=== PATIENT | male | born 1940 | race African-American/Black ===

== ENCOUNTER 2024-03-04 19:35 | Inpatient (IN) | payer MEDICARE, OTHER, SELFPAY ==
[2024-03-04] VITALS (13 sets, daily range): BP systolic 109–142; BP diastolic 50–74; BMI 27.6
[2024-03-04 11:36] LABS: Glucose - Point of Care 153 mg/dl (70-99)
[2024-03-04] MEDS: NSS 500 IV (11:36)
[2024-03-04] MEDS: BACTROBAN NASAL 1 GRAM NASAL (11:36)
[2024-03-04] MEDS: PERIDEX 0.12% ORAL RINSE 15 ML PO (11:36)
[2024-03-04 11:40] LABS: Hematocrit 32.1 % (39.0-52.0); Hemoglobin 10.3 g/dL (13.0-18.0); Mean Corp Hgb Conc. 32.1 g/dL (33.0-37.0); Mean Corpuscular Hgb 28.7 pg (27.0-31.0); Mean Corpuscular Volume 89.4 fL (80.0-94.0); Red Blood Cell Count 3.59 10^6/uL (4.70-6.10); Red Cell Dist. Width 16.8 % (11.5-14.5); White Blood Cell Count 7.6 10^3/uL (4.8-10.8)
[2024-03-04 11:49] LABS: INR 1.23; PT 15.3 Sec (11.4-14.6)
[2024-03-04 11:51] LABS: APTT 28.6 Sec (23.4-35.0)
[2024-03-04 11:56] LABS: Blood Urea Nitrogen 25 mg/dl (9-20); Calcium 9.4 mg/dl (8.4-10.2); Carbon Dioxide 32 mmol/L (22-30); Chloride 93 mmol/L (98-107); Estimated Creatinine Clearance 12 ml/min; Glucose 141 mg/dl (70-99); Potassium 4.8 mmol/L (3.5-5.1); Sodium 136 mmol/L (135-145); eGFR 10.96
[2024-03-04 12:01] LABS: Mean Platelet Volume 10.9 fL (7.4-10.4); Platelet Count 111 10^3/uL (130-400)
--- NOTE | 2024-03-04 15:07 | W.SUR.PREOP ---
Pre-Operative Surgical Note
-
I have examined this patient prior to the performance of the scheduled procedure.
The patient's condition is unchanged from the time of the current History and
Physical and the patient is able to undergo the scheduled procedure.
[2024-03-04 16:41] LABS: Glucose - Point of Care 139 mg/dl (70-99)
--- NOTE | 2024-03-04 17:08 | OR.RPT ---
Operative Report
Operative Report
Date of Operation: 03/04/2024
Pre Op Diagnosis: End-stage renal disease requiring hemodialysis
Post Op Diagnosis: End-stage renal disease requiring hemodialysis
Procedure: Creation of right upper extremity brachiocephalic arteriovenous fistula
Surgeon: Praveen Dinh III, MD
Clerk Manager: Pk Carlos MD PhD, PGY1
Anesthesia: General
Complications: None
Estimated Blood Loss: 25 cc
History and Indications for Procedure: 83-year-old male with end-stage renal disease requiring hemodialysis. He has a left chest wall AICD/pacemaker and is right-handed. We brought him to the operating room for creation of hemodialysis access.
Procedure in Detail: Maury Meyers was correctly identified and brought to the operating room. He was placed supine on the operating table with the right arm abducted 90 degrees on a side table. After adequate induction of anesthesia I performed
intraoperative ultrasound on the veins of the right arm. I identified and measured the cephalic vein from the antecubital fossa to the shoulder. The vein was of adequate quality and diameter for AV fistula creation. The right brachial artery was
also identified in the upper arm and proximal forearm. An appropriate skin incision was marked approximately 1 fingerbreadth below the skin crease at the antecubital fossa. The right hand and arm were circumferentially prepped and draped in usual
sterile fashion. Preoperative antibiotics were administered. A timeout procedure was performed with the nursing and anesthesia staff confirming the patient's identity as well as the nature and laterality of the procedure.
A transverse skin incision was made in the proximal forearm through the previously placed skin anuj. A combination of electrocautery and sharp dissection was used to expose the cephalic vein. Branches were ligated and divided between silk ties and
metal clips. The brachial artery was exposed using sharp dissection. Proximal and distal control was obtained on the brachial artery with vessel loops. The distal end of the cephalic vein was ligated with a silk tie and then transected with
scissors. The vein was flushed with heparinized saline solution. The vein flushed easily with no resistance. I passed both the 3 mm and 3.5 mm coronary dilators easily through the exposed segment of cephalic vein. A bulldog clamp was placed on
the vein. The brachial artery vessel loops were secured. An arteriotomy was made with an 11 blade and extended slightly proximally and distally with Aguirre scissors. The proximal and distal brachial artery were flushed with heparinized saline
solution. An end-to-side anastomosis was created using a running 7-0 Prolene suture. Prior to the completion of the anastomosis the brachial artery was allowed to temporarily forward bleed and backbleed. The area under the anastomosis was flushed
with heparinized saline solution to remove any potential thrombus or debris. The anastomosis was completed. The bulldog was removed from the vein. The proximal vessel loop was released first. After several heartbeats the distal vessel loop was
released. There was an easily palpable thrill in the cephalic vein along its course in the upper arm. The anastomotic suture line was closely inspected and hemostasis was achieved. Hemostasis was achieved in the wound bed. The wound was
irrigated with saline solution. Local anesthesia was infiltrated into the skin and subcutaneous tissue around the wound. The wound was closed in layers. Skin glue was applied.
At the conclusion of the case the patient had an easily palpable thrill in the cephalic vein in the upper arm. The patient had a robust radial Doppler signal at the wrist, unchanged from preop.
The patient tolerated the procedure well and was taken to the recovery room in good condition.
Signed:
Praveen Dinh III, MD
[facility]
[phone] ([id number])
[2024-03-04 18:14] LABS: Glucose - Point of Care 181 mg/dl (70-99)
--- NOTE | 2024-03-04 18:31 | PTCARENOTE ---
Addendum entered by Alma Dean RN 03/04/24 18:32:
Right upper extremity incision remains unchanged from initial assessment. Positive bruit/thrill
Original Note:
Report given to 2S nurse. Patient transported to 2S with 2RN's.
--- NOTE | 2024-03-04 18:51 | W.IMMPOSTOP ---
Surgical Immed Post Op Note
-
Primary Surgeon: Dr. Praveen Dinh III, MD
Assisting Surgeon: Dr. Pk Carlos MD, PhD (PGY-1)
Pre-op Diagnosis: End stage renal disease on hemodialysis
Post-op Diagnosis: End stage renal disease on hemodialysis
Procedure Performed: Right upper extremity brachiocephalic AV fistula
Anesthesia Type: General
Specimen / Cultures: None
Estimated Blood Loss: 25cc
Complications: None
Operative Findings: The patient was brought to the OR and placed in the supine position. After induction of anesthesia, ultrasound guidance was used to perform upper extremity vein mapping. This demonstrated a reasonably sized cephalic vein. The
patient was prepped and draped in usual sterile fashion. Incision was made and a combination of electrocautery and sharp dissection was used to expose the cephalic vein. A vessel loop was passed around the vein proximally and a silk tie was passed
around the vein distally. We then dissected to expose the brachial artery. Red vessel loops were passed around the brachial artery for proximal and distal control. The proximal vein was ligated and the vein was transected. Heparinized saline was
injected into the proximal vein. The proximal vein was then dilated to improve its caliber. We then made an arteriotomy in the brachial artery and extended it with almaguer scissors. Heparinized saline was injected into the proximal and distal aspects
of the brachial artery. We then brought the transected cephalic vein over to the artery. A running 7-0 prolene suture was used to complete the end to side anastomosis between the cephalic vein and brachial artery. At the completion of the
anastomosis, there was a palpable thrill in the vein. Soft tissues were closed with suture layers and skin glue on the surface. At the completion of the case, the patient had a palpable radial pulse. The patient was transferred to the PACU in stable
condition.
--- NOTE | 2024-03-04 19:45 | PTCARENOTE ---
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 AAOx3, very pleasant, oriented to room and explained plan of care. at bedside and also oriented to room. VSS, surgical site intact. assessment ongoing.
[2024-03-04] MEDS: LIPITOR 80 MG PO (20:58)
[2024-03-04] MEDS: ADVAIR HFA 230/21 MCG INHALER 2 PUFF INH (20:59)
[2024-03-04 21:22] LABS: Glucose - Point of Care 292 mg/dl (70-99)
[2024-03-05] VITALS (7 sets, daily range): BP systolic 83–120; BP diastolic 44–56; BMI 27.0
[2024-03-05] MEDS: TYLENOL 650 MG PO ×2 (02:46→21:07)
--- NOTE | 2024-03-05 06:37 | W.PN.VS ---
Addendum entered and electronically signed by Chapincito Isaacs MD 03/05/24 13:06:
Seen and examined. Initially I was informed about plan for hemodialysis elsewhere. However noted that patient was still here. Therefore went to go see him. He completed dialysis here. No issues. He is without significant complaints. Right
upper extremity incision clean dry and intact. Thrill/pulsatility in fistula. Patent on exam. Hand is pink and warm with palpable radial pulse distally. Plan/okay for discharge. Follow-up in the office to schedule.
Original Note:
Today's Communication / Plan
-
Discussed with Dr Isaacs
Assessment/Plan
-
POD 1 AVF creation
Plan:
-DC this am
-Pt will go to his outpt HD center from here for HD at 10:30a
-Follow up as scheduled
Subjective Data
-
Date of Service: March 05, 2024
Pt seen at bedside this am. Pt offers no complaints at this time. No events overnight.
Objective Data
-
Vital Signs
Temp Pulse Resp BP Pulse Ox
97.7 F 61 18 117/50 100
03/05/24 02:54 03/05/24 02:54 03/05/24 02:54 03/05/24 02:54 03/05/24 02:54
Intake and Output
03/03/24 03/04/24 03/05/24
06:59 06:59 06:59
Intake Total 360 / 360
Balance 360 / 360
Intake:
Oral fluids 360 / 360
IV fluids (Total) 0 / 0
ns 0 / 0
Lab Results
03/04/24 10:49
03/04/24 10:49
Calcium 9.4 mg/dl (8.4-10.2) 03/04/24 10:49
Physical Exam
-
AAOx3
No tachypnea
No tachycardia
abd soft
RUE fistula site c/d/i, scant swelling, +thrill, palp radial pulse
--- NOTE | 2024-03-05 06:42 | W.DS.TRANS ---
Addendum entered and electronically signed by GINA Ba 03/05/24 06:48:
Added oxycodone for pain management
Original Note:
DC Summary - [place]
-
Discharge Instructions:
Sleep Apnea Risk Intermediate
Discharge Diagnosis/Procedures Right upper extremity AV fistula creation
Diet As tolerated
Activity No strenuous activity
Driving Restrictions No driving for 1 week
Bathing Restrictions OK to Shower
Instructions:
Stand-Alone Forms: DC Instr - Vascular OR
Changes to Home Medications: No
Discharge Medications:
DC Medications w/original date entered in [employer]
albuterol sulfate 90 mcg/actuation aerosol inhaler 2 puff inhalation QID PRN Shortness of Breath 09/01/22
fluticasone 250 mcg-salmeterol 50 mcg/dose blistr powdr for inhalation (Advair Diskus) 1 inh inhalation R BID 09/01/22
atorvastatin 80 mg tablet 80 mg PO QPM #30 tabs 09/16/22
nitroglycerin 0.4 mg sublingual tablet 0.4 mg sublingual [id number] PRN chest pain #20 tabs 09/16/22
allopurinol 100 mg tablet 200 mg PO DAILY 12/14/23
amiodarone 200 mg tablet 200 mg PO DAILY 12/14/23
aspirin 81 mg capsule 81 mg PO DAILY 12/14/23
glipizide 5 mg tablet, extended release 24 hr 5 mg PO QPM 12/14/23
levalbuterol HCl 1.25 mg/3 mL solution for nebulization 1.25 mg inhalation R TID PRN lungs/breathing issue 12/14/23
mecobalamin (vitamin B12) 1,000 mcg chewable tablet (B12 Active) 1,000 mcg PO DAILY 12/14/23
metoprolol succinate 50 mg tablet,extended release 24 hr 50 mg PO BID 12/14/23
Home Medication Changes
Pending Results: No
--- NOTE | 2024-03-05 06:48 | W.[place]-PDMP ---
[place]-PD[place]
-
Checked the [place]- Prescription Drug Monitoring Program website, no red flags identified; safe to proceed with prescription.
[2024-03-05 06:58] LABS: Glucose - Point of Care 197 mg/dl (70-99)
[2024-03-05] MEDS: ADVAIR HFA 230/21 MCG INHALER 2 PUFF INH ×2 (08:09→20:33)
--- NOTE | 2024-03-05 10:13 | CM ---
feed mill manager reviewed patient's chart and met with patient and patient lives with his spouse in a 2 story home with 5 steps to enter patient is independent with adl's and ambulation. Patient with ESRD and receives HD at [facility] in [place].
feed mill manager reached out to [facility] and the are aware that patient has received HD today. Patient provides his own transport to HD.
Pharmacy [facility]
Plan; Home today, spouse to transport.
[facility]
[phone]
[2024-03-05] MEDS: MANNITOL 25% 12.5 GRAMS IV (10:30)
[2024-03-05] MEDS: FLEXBUMIN 25% FOR HEMODIALYSIS 12.5 GRAMS IV (10:33)
[2024-03-05] MEDS: CYANOCOBALAMIN 1000 MCG IM (12:52)
[2024-03-05] MEDS: LOW STRENGTH ASPIRIN 81 MG PO (12:52)
[2024-03-05] MEDS: GLUCOTROL XL (EXTENDED RELEASE) 5 MG PO (12:54)
[2024-03-05] MEDS: ZYLOPRIM 200 MG PO (12:54)
[2024-03-05] MEDS: HEPARIN SC (12:55)
[2024-03-05] MEDS: PACERONE 200 MG PO (13:06)
[2024-03-05] MEDS: TOPROL XL 50 MG PO (13:06)
--- NOTE | 2024-03-05 13:38 | W.CON.NEPH ---
Consultation
-
Date/Time Consultation Requested: 03/04/2024
Requesting Provider: Praveen Dinh
Performing Provider: Hyun Willis
Reason for Consultation: ESRD on HD
Medical History
-
Chief Complaint: ESRD on HD
History of Present Illness:
Mr. Meyers is an 83 YOM with PMH of ESRD on HD (TT) who follows with an outside nephrology group who presents to the hospital after fistula creation in need of dialysis today per his usual schedule. He is maintained on ASA and statin for stroke. He
has a history of HTN, on metoprolol. He has no complaints and feels well today
Past Medical History
ESRD on HD
Three-vessel coronary artery disease.
History of CVA.
History of hypertension.
Diabetes, now off medications.
Asthma.
Proctectomy and appendectomy.
History of gout.
Past Medical History: Other
Social History
Tobacco: Former Smoker
Alcohol: None
Drug: None
Living: With Family
Family History
NoCKD
Family History: Not Pertinent
Allergies / Home Medications
Allergy/AdvReac Type Severity Reaction Status Date / Time
Aminoglycosides Allergy Vertigo Verified 03/04/24 11:05
erythromycin base Allergy VERTIGO Verified 03/04/24 11:05
latex Allergy Rash Verified 03/04/24 11:05
losartan Allergy Unknown Verified 03/04/24 11:05
niacin Allergy HIVES/WELTS Verified 03/04/24 11:05
�Medication �Instructions �Recorded �Confirmed �Type
albuterol sulfate 90 mcg/actuation 2 puff inhalation QID PRN 09/01/22 03/04/24 History
aerosol inhaler Shortness of Breath
fluticasone 250 mcg-salmeterol 50 1 inh inhalation R BID 09/01/22 03/04/24 History
mcg/dose blistr powdr for
inhalation (Advair Diskus)
atorvastatin 80 mg tablet 80 mg PO QPM #30 tabs 09/16/22 03/04/24 Rx
nitroglycerin 0.4 mg sublingual 0.4 mg sublingual [id number] PRN 09/16/22 03/04/24 Rx
tablet chest pain #20 tabs
allopurinol 100 mg tablet 200 mg PO DAILY 12/14/23 03/04/24 History
amiodarone 200 mg tablet 200 mg PO DAILY 12/14/23 03/04/24 History
aspirin 81 mg capsule 81 mg PO DAILY 12/14/23 03/04/24 History
glipizide 5 mg tablet, extended 5 mg PO QPM 12/14/23 03/04/24 History
release 24 hr
levalbuterol HCl 1.25 mg/3 mL 1.25 mg inhalation R TID PRN 12/14/23 03/04/24 History
solution for nebulization lungs/breathing issue
mecobalamin (vitamin B12) 1,000 1,000 mcg PO DAILY 12/14/23 03/04/24 History
mcg chewable tablet (B12 Active)
metoprolol succinate 50 mg 50 mg PO BID 12/14/23 03/04/24 History
tablet,extended release 24 hr
oxycodone 5 mg tablet 5 mg PO Q4HPRN PRN moderate pain 03/05/24 Rx
#5 tabs
Review of Systems
-
History Source: Patient
All other systems: Negative unless noted
Physical Exam
Vital Signs
Vital Signs
Temp Pulse Resp BP Pulse Ox
97.6 F 61 16 116/56 97
03/05/24 07:31 03/05/24 13:06 03/05/24 08:36 03/05/24 13:06 03/05/24 08:36
Lab Results
WBC 7.6 10^3/uL (4.8-10.8) 03/04/24 10:49
RBC 3.59 10^6/uL (4.70-6.10) L 03/04/24 10:49
Hgb 10.3 g/dL (13.0-18.0) L 03/04/24 10:49
Hct 32.1 % (39.0-52.0) L 03/04/24 10:49
Plt Count 111 10^3/uL (130-400) L 03/04/24 10:49
Sodium 136 mmol/L (135-145) 03/04/24 10:49
Potassium 4.8 mmol/L (3.5-5.1) 03/04/24 10:49
Chloride 93 mmol/L (98-107) L 03/04/24 10:49
Carbon Dioxide 32 mmol/L (22-30) H 03/04/24 10:49
BUN 25 mg/dl (9-20) H 03/04/24 10:49
Creatinine 5.0 mg/dL (0.7-1.3) H* 03/04/24 10:49
eGFR 10.96 03/04/24 10:49
Glucose 141 mg/dl (70-99) H 03/04/24 10:49
Calcium 9.4 mg/dl (8.4-10.2) 03/04/24 10:49
Physical Exam
General: AOx3, No Distress and Nontoxic
HEENT: PERRL, EOMI, Anicteric, Conjunctivae Clear, Ear/Nose Intact, Hearing Normal, Oropharynx Clear/Moist, Dentition Intact, Facial Symmetry, Neck Supple, Trachea Midline and No JVD
Respiratory: Clear
Cardiac: S1/S2, Regular Rate/Rhythm and No Edema
Breast: N/A
Abdomen: Soft, Nontender and Nondistended
Rectal: Deferred by Provider
Genito-urinary: No Costovertebral Tender
Musculoskeletal: No Clubbing, No Cyanosis and No Edema
Skin: No Rash, Warm, Dry, No Cyanosis, Normal Turgor and No Bruising
Neuro: Nonfocal/Grossly Intact
Hematologic/Lymphatic: No Cervical Lymphadenopathy
Psych: Mood/afflect pleasant, Insight/judgement good and Appropriate
Vascular Access: AVF and CVC
Data Reviewed
-
Radiology: Image Personally Visualized and interpreted (some pulmnary edema noted)
Labs: Labs Reviewed by me, Discussed with Physician, Discussed with Nurse and Discussed with Patient
Old Records: Reviewed
Assessment/Plan
-
Assessment:
ESRD on HD
AVF placement
HTN
Plan:
- dialysis today per usual scehdule
--- NOTE | 2024-03-05 13:52 | W.PN.NEPH.HD ---
Assessment
-
- 500cc removed
- via CVC
Progress Note - Hemodialysis
-
Date of Service: March 05, 2024
Duration: 30 minutes and 3 hours
Potassium Bath: 3
Calcium Bath: 2.5
Opti-Dialyzer: 160
Ultrafiltration: Other
Blood Flow: 400
Dialysate Flow: 600
[2024-03-05 14:51] LABS: Glucose - Point of Care 258 mg/dl (70-99)
--- NOTE | 2024-03-05 15:54 | PTCARENOTE ---
Pt was in BR attempting to have a BM and his heart rate dropped to 32 multiple times, pt however was asymptomatic. While ambulating pt back to bed he c/o dizziness. B/P 83/48. Placed pt in trendelenburg and notified of all including low HR since
pt does have a pacer. B/P repeated shortly after and B/P now 110/56 and states that he feels better. D/C placed on hold
[2024-03-05] MEDS: HEPARIN 5000 UNITS SC ×3 (16:53→23:31)
[2024-03-05] MEDS: LIPITOR 80 MG PO (16:54)
[2024-03-05 17:01] LABS: Glucose - Point of Care 255 mg/dl (70-99)
[2024-03-05] MEDS: MIRALAX 17 GRAMS PO (21:07)
[2024-03-05 21:13] LABS: Glucose - Point of Care 180 mg/dl (70-99)
[2024-03-06 03:00] VITALS: BP 106/47
[2024-03-06 06:00] VITALS: BMI 27.0
[2024-03-06 07:05] VITALS: BP 94/74
[2024-03-06] MEDS: ADVAIR HFA 230/21 MCG INHALER 2 PUFF INH (07:11)
[2024-03-06 07:54] LABS: Glucose - Point of Care 125 mg/dl (70-99)
[2024-03-06] MEDS: ZYLOPRIM 200 MG PO (08:12)
[2024-03-06] MEDS: PACERONE 200 MG PO (08:12)
[2024-03-06] MEDS: MIRALAX 17 GRAMS PO (08:12)
[2024-03-06] MEDS: HEPARIN 5000 UNITS SC (08:13)
[2024-03-06] MEDS: TYLENOL 650 MG PO (08:13)
[2024-03-06] MEDS: LOW STRENGTH ASPIRIN 81 MG PO (08:13)
[2024-03-06] MEDS: GLUCOTROL XL (EXTENDED RELEASE) PO (08:26)
[2024-03-06] MEDS: TOPROL XL PO (08:27)
[2024-03-06 11:10] VITALS: BP 108/52
--- NOTE | 2024-03-06 11:33 | W.PN.UPDATE ---
Update Note
Progress Note Update
Seen and evaluated this morning. We kept him overnight because after dialysis he had a little bit of orthostasis when he got up to the bathroom with slightly decreased blood pressure and lightheadedness. Resolved when he was back in bed. There
was a question of bradycardia with heart rate in the 30s. However he is paced. This bradycardia was noted on monitoring. In review of monitoring by the nursing staff they feel that this was likely an error due to the leads or an adequate
transmission. Regardless no further hypotension or bradycardia noted. Patient has been out of bed since and denies any lightheadedness. He is without complaints this morning. On exam his right upper extremity incision is clean dry and intact.
Arm is soft. Thrill in the fistula is noted. Plan/ okay for discharge today. I did discuss with his shot packer over the phone yesterday his hypotension and the potential bradycardia. But then when we investigated did appear to be related to
monitoring error.
[2024-03-06] MEDS: CYANOCOBALAMIN IM (12:35)
== END 2024-03-06 13:11 | disposition home or self-care (01) | DRG 675 ==
LOC: 2 SOUTH 19:35
PROVIDERS: ADMITTING PHYSICIAN Surgery Vascular Surgery; FAMILY PHYSICIAN Nurse Practitioner Family; OTHER PHYSICIAN Student in an Organized Health Care Education/Training Program
PROC: 03170ZD Bypass Right Brachial Artery to Upper Arm Vein, Open Approach (ICD-10-PCS; 2024-03-04)
DX: N18.6 End stage renal disease (principal)
CPT/HCPCS: 36821; 71045; 76937; 80048; 82962; 85027; 85610; 85730; 87070; 93005; 94640; G0257; P9047

== ENCOUNTER 2024-05-20 06:23 | Day surgery (SDC) | payer MEDICARE, OTHER, SELFPAY ==
[2024-05-20] VITALS (8 sets, daily range): BP systolic 97–120; BP diastolic 48–80; BMI 29.2
[2024-05-20] MEDS: NSS 500 IV (07:45)
[2024-05-20 08:06] LABS: Glucose - Point of Care 141 mg/dl (70-99)
[2024-05-20 08:18] LABS: INR 1.17; PT 14.7 Sec (11.4-14.6)
[2024-05-20 08:19] LABS: APTT 31.8 Sec (23.4-35.0)
[2024-05-20 08:24] LABS: Hemoglobin 10.9 g/dL (13.0-18.0); Mean Corpuscular Hgb 29.2 pg (27.0-31.0); Mean Corpuscular Volume 88.5 fL (80.0-94.0); Mean Platelet Volume 11.5 fL (7.4-10.4); Platelet Count 125 10^3/uL (130-400); Red Blood Cell Count 3.73 10^6/uL (4.70-6.10); Red Cell Dist. Width 16.4 % (11.5-14.5)
[2024-05-20 08:54] LABS: Blood Urea Nitrogen 13 mg/dl (9-20); Calcium 9.6 mg/dl (8.4-10.2); Carbon Dioxide 36 mmol/L (22-30); Chloride 92 mmol/L (98-107); Estimated Creatinine Clearance 13 ml/min; Glucose 129 mg/dl (70-99); Potassium 3.8 mmol/L (3.5-5.1); Sodium 138 mmol/L (135-145); eGFR 14.33
--- NOTE | 2024-05-20 09:54 | W.SUR.POST ---
Surgical Immediate Post Op
Note
Pre Op Diagnosis: ESRD
Post Op Diagnosis: ESRD
Procedure Performed: Right Upper Extremity fistulagram, balloon angioplasty to outflow vein stenosis
Primary Surgeon: Praveen Dinh III, MD
Secondary Surgeons: N/A
Anesthesia: MAC
Estimated Blood Loss: 2ml
Fluids: See anesthesia flowsheet
Drains/Shunts: N/A
Specimens/Cultures: N/A
Doppler/Duplex/Angio (Y/N): Y
Complications: None
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
[2024-05-20 11:00] LABS: Glucose - Point of Care 94 mg/dl (70-99)
--- NOTE | 2024-05-20 14:38 | OR.RPT ---
Operative Report
Operative Report
Date of Operation: 05/20/2024
Pre Op Diagnosis: Poorly maturing right upper arm AV fistula
Post Op Diagnosis: Poorly maturing right upper arm AV fistula
Procedure:
1.) Balloon angioplasty of right upper arm arteriovenous fistula (6 mm x 20 mm cutting balloon: 6 mm x 100 mm angioplasty balloon)
2.) Diagnostic right upper arm fistulogram
3.) Central venogram
4.) Ultrasound-guided percutaneous access to the right upper arm arteriovenous fistula
Surgeon: Praveen Dinh III, MD
Anesthesia: Sedation/local
Complications: None
Fluoroscopy:
6.4 minutes
13 mGy
3.04 DAP
History and Indications for Procedure: 83-year-old male with poorly maturing right upper arm arteriovenous fistula. Preoperative duplex demonstrated a stenosis in the outflow vein
Procedure in Detail: Maury Meyers was correctly identified and placed supine on the operating table. After adequate induction of anesthesia the right arm was positioned, prepped and draped in the usual sterile fashion. Preoperative antibiotics
were administered. A timeout procedure was performed with the nursing and anesthesia staff confirming the patient�s identity as well as the nature and laterality of the procedure.
Intraoperative ultrasound was performed on the AV access. This was a brachiocephalic arteriovenous fistula. Ultrasound demonstrated a patent fistula with an area of clear stenosis in the proximal outflow vein.
I identified a puncture site along the proximal vein adjacent to the arteriovenous anastomosis and infiltrated local anesthesia at this site. Under ultrasound guidance I accessed the fistula with a micropuncture needle facing towards the venous
outflow and placed the micropuncture sheath. I performed a fistulogram which demonstrated the following:
Fistulogram:
Arterial anastomosis: Widely patent with no stenosis
Fistula/Graft: Proximal vein segment adjacent to the arteriovenous anastomosis was patent. Just distal to this there was a focal high-grade stenosis in the proximal outflow vein. The remainder of the fistula in the upper arm was patent with no
additional stenosis identified
Central venogram: Patent central veins with some stenosis around the dialysis catheter at the level of the right brachiocephalic vein.
Endovascular intervention:
Systemic heparin was administered. A short 6 Fr sheath was placed. Under roadmap guidance a V18 wire was used to cross the stenosis. I then brought a 6 x 20 mm cutting angioplasty balloon into position under roadmap guidance and centered this across
the stenosis. This was inflated to nominal pressure and held in place for 1 minute. Subsequent images demonstrated an improved result. I then treated the entire length of the cephalic vein in the upper arm from the shoulder back to the sheath tip
with a 6 mm x 100 mm angioplasty balloon. 3 separate inflations were performed
Completion fistulogram demonstrated an excellent technical result. The right upper arm brachiocephalic fistula was widely patent with good flow and no residual stenosis identified.
At the conclusion of the procedure a Monocryl suture was placed around the sheath puncture site. The sheath was removed and the suture secured. Hemostasis was achieved. A sterile dressing was applied.
The patient tolerated the procedure well and was taken to the PACU in stable condition
Signed:
Praveen Dinh III, MD
[facility]
[phone] ([id number])
== END 2024-05-20 11:21 | disposition home or self-care (01) ==
LOC: CATH 06:23
PROVIDERS: ATTENDING PHYSICIAN Surgery Vascular Surgery; FAMILY PHYSICIAN Nurse Practitioner Family; OTHER PHYSICIAN Internal Medicine Interventional Cardiology; OTHER PHYSICIAN Internal Medicine Nephrology
DX: T82.858A Stenosis of other vascular prosthetic devices, implants and grafts, initial encounter (principal); Y83.9 Surgical procedure, unspecified as the cause of abnormal reaction of the patient, or of later complication, without mention of misadventure at the time of the procedure; I13.2 Hypertensive heart and chronic kidney disease with heart failure and with stage 5 chronic kidney disease, or end stage renal disease; N18.6 End stage renal disease; Z99.2 Dependence on renal dialysis; E11.22 Type 2 diabetes mellitus with diabetic chronic kidney disease; I50.9 Heart failure, unspecified; I25.10 Atherosclerotic heart disease of native coronary artery without angina pectoris; Z87.891 Personal history of nicotine dependence; Z85.46 Personal history of malignant neoplasm of prostate; Z79.84 Long term (current) use of oral hypoglycemic drugs; Z79.82 Long term (current) use of aspirin; Z79.01 Long term (current) use of anticoagulants
CPT/HCPCS: 36902; C1769; C1725; C1894; 76937; 80048; 82962; 85027; 85610; 85730; Q9967

== ENCOUNTER → 2024-05-30 12:23 | Outpatient (REF) | payer MEDICARE, OTHER, SELFPAY | LOC: RAD 12:23 | PROVIDERS: ATTENDING PHYSICIAN Surgery Vascular Surgery; FAMILY PHYSICIAN Nurse Practitioner Family | DX: I77.0 Arteriovenous fistula, acquired (principal) | CPT/HCPCS: 93990 ==

== ENCOUNTER 2024-06-17 09:14 | Day surgery (SDC) | payer MEDICARE, OTHER, SELFPAY ==
[2024-06-17] VITALS (28 sets, daily range): BP systolic 76–136; BP diastolic 45–73; BMI 25.6
[2024-06-17] MEDS: PERIDEX 0.12% ORAL RINSE 15 ML PO (10:03)
[2024-06-17] MEDS: NSS 500 IV ×2 (10:03→17:34)
[2024-06-17] MEDS: BACTROBAN NASAL 1 GRAM NASAL (10:03)
[2024-06-17 10:04] LABS: Hematocrit 31.3 % (39.0-52.0); Hemoglobin 10.2 g/dL (13.0-18.0); Mean Corp Hgb Conc. 32.6 g/dL (33.0-37.0); Mean Corpuscular Hgb 29.9 pg (27.0-31.0); Mean Corpuscular Volume 91.8 fL (80.0-94.0); Platelet Count 121 10^3/uL (130-400); Red Blood Cell Count 3.41 10^6/uL (4.70-6.10); Red Cell Dist. Width 17.1 % (11.5-14.5); White Blood Cell Count 6.5 10^3/uL (4.8-10.8)
[2024-06-17 10:07] LABS: INR 1.23; PT 15.3 Sec (11.4-14.6)
[2024-06-17 10:31] LABS: Glucose - Point of Care 177 mg/dl (70-99)
[2024-06-17 11:24] LABS: Blood Urea Nitrogen 20 mg/dl (9-20); Calcium 9.7 mg/dl (8.4-10.2); Carbon Dioxide 32 mmol/L (22-30); Chloride 92 mmol/L (98-107); Estimated Creatinine Clearance 12 ml/min; Glucose 209 mg/dl (70-99); Potassium 3.9 mmol/L (3.5-5.1); Sodium 140 mmol/L (135-145); eGFR 10.96
[2024-06-17 12:45] LABS: Glucose - Point of Care 168 mg/dl (70-99)
--- NOTE | 2024-06-17 14:20 | OR.RPT ---
Operative Report
Operative Report
Date of Operation: 06/17/2024
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
Procedure: Revision of existing right upper extremity brachiocephalic arteriovenous fistula with transposition of the cephalic vein and new arteriovenous anastomosis to a more proximal segment of brachial artery.
Surgeon: Praveen Dinh III, MD
Falsework Builder: Susan Patel MD PGY-8
Anesthesia: General
Complications: None
Estimated Blood Loss: 20 cc
History and Indications for Procedure: 83-year-old male with poorly maturing right upper extremity brachiocephalic arteriovenous fistula. He had undergone fistulogram with balloon angioplasty of a proximal venous outflow stenosis. This did not
result in meaningful improvement in flow volumes. I brought him back to the operating room today for revision of the fistula.
Procedure in Detail: Maury Meyers was correctly identified and placed supine on the operating table with his right arm abducted 90 degrees on a side table. After adequate induction of anesthesia his cephalic vein from the anastomosis to the
shoulder was marked with ultrasound guidance. The brachial artery was marked just proximal to the antecubital fossa. The right arm was circumferentially prepped and draped in the usual sterile fashion. He received preoperative antibiotics. A
timeout procedure was performed with the nursing and anesthesia staff confirming the patient's identity as well as nature and laterality of the procedure.
An incision was made over the brachial artery just proximal to the antecubital fossa. Electrocautery and sharp dissection were used to expose the brachial artery. Proximal and distal control was obtained with vessel loops. I then made an incision
over the cephalic vein in the upper arm over a length of 12 cm. The vein was exposed along its entire length at this incision. The exposed segment of vein was distal to the area of the abnormality/stenosis treated on recent fistulogram. All
branches were ligated and divided between silk ties and metal clips. The proximal end of the vein near the arteriovenous anastomosis was ligated with a 2-0 silk tie. The vein was then transected and inspected. The end of the vein was normal in
caliber and quality with no obvious stenosis or intimal thickening identified. The vein flushed very easily with heparinized saline solution. The vein was then dilated. The vein was transposed into a more superficial subcutaneous plane and
tunneled to the brachial artery exposure site using a large clamp. Great care was taken to keep the proper orientation of the vein. The proximal and distal vessel loops were then secured. An 11 blade was used to make an arteriotomy in the
brachial artery which was extended just slightly proximally and distally with Aguirre scissors. The proximal and distal artery were both flushed with heparinized saline solution. The end of the vein was flushed easily once again. The vein was
spatulated and an end-to-side anastomosis was created to the brachial artery using a running 7-0 Prolene suture. At the completion of the anastomosis the proximal vessel loop was released. Several seconds later the distal vessel loop was released.
There was a pulse and a thrill palpable throughout the cephalic vein fistula in the upper arm. The suture line was closely inspected for hemostasis which was achieved. The wounds were irrigated with saline solution. Local anesthesia was then
infiltrated into the skin and subcutaneous tissue. The wounds were both closed in layers and sterile dressings were applied.
The patient tolerated the procedure well was taken to the recovery room in good condition.
Attestation: I was present and responsible for the entire procedure
Signed:
Praveen Dinh III, MD
[facility] Vascular Surgery
[phone] ([phone])
[2024-06-17 14:56] LABS: Glucose - Point of Care 169 mg/dl (70-99)
[2024-06-17] MEDS: TYLENOL 650 MG PO ×2 (16:14→21:32)
[2024-06-17 17:54] LABS: Hemoglobin 10.4 g/dL (13.0-18.0); Mean Corp Hgb Conc. 32.5 g/dL (33.0-37.0); Mean Corpuscular Hgb 28.8 pg (27.0-31.0); Mean Corpuscular Volume 88.6 fL (80.0-94.0); Mean Platelet Volume 12.1 fL (7.4-10.4); Platelet Count 122 10^3/uL (130-400); Red Blood Cell Count 3.61 10^6/uL (4.70-6.10); Red Cell Dist. Width 17.2 % (11.5-14.5)
[2024-06-17 18:16] LABS: Blood Urea Nitrogen 22 mg/dl (9-20); Calcium 9.2 mg/dl (8.4-10.2); Carbon Dioxide 23 mmol/L (22-30); Chloride 94 mmol/L (98-107); Estimated Creatinine Clearance 12 ml/min; Glucose 210 mg/dl (70-99); Potassium 4.2 mmol/L (3.5-5.1); Sodium 136 mmol/L (135-145); eGFR 10.46
[2024-06-17] MEDS: ADVAIR HFA 115/21 MCG INHALER 2 PUFF INH (20:14)
--- NOTE | 2024-06-17 21:30 | PTCARENOTE ---
Pt blood glucose 128 had soup in SDS surgery before arriving to unit @ 1930. Reviewed medications with pt and held Glipizide this evening r/t to smaller meal and reports that he takes with meals at dinner. Pt reported that he did not want anything
to eat at this time and aware of the s/s of hypoglycemia and to report to staff.
[2024-06-17] MEDS: LIPITOR 80 MG PO (21:32)
[2024-06-17 21:41] LABS: Glucose - Point of Care 128 mg/dl (70-99)
[2024-06-18 01:37] LABS: Glucose - Point of Care 20 mg/dl (70-99)
[2024-06-18 01:46] LABS: Glucose - Point of Care 43 mg/dl (70-99)
[2024-06-18 01:50] LABS: Glucose - Point of Care 118 mg/dl (70-99)
--- NOTE | 2024-06-18 01:51 | W.PN.UPDATE ---
Update Note
Progress Note Update
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
-BS 20 symptomatic. Patient skipped his dinner tonight.
-Dextrose 50 % syringe 12.5 grams given x2 Bs from 20 --->43----> 118
-Accu check ac & hs ordered,
-Dextrose PRN for bs less than 70 ordered.
-Patient educated on diet and not to skip meals.
[2024-06-18 02:04] LABS: Glucose - Point of Care 144 mg/dl (70-99)
--- NOTE | 2024-06-18 02:27 | PTCARENOTE ---
Pt reported that he was not feeling well to staff, pt sweaty and clammy blood glucose of 20 obtained, pt provided 4 oz of apple juice immediately rapid called, and dextrose medication administered. Blood glucose rechecked for 43 after 15 min,
administered 25ml rechecked 0200 for 144. Pt did not want to eat anything at this time but requested 4 oz applejuice. Pt resting comfortably in bed, pt at bedside. Pt and educated to report elvia further s/s of hypoglycemia to staff, call
allison within reach.
[2024-06-18 03:25] VITALS: BP 104/50
[2024-06-18 04:26] LABS: Glucose - Point of Care 89 mg/dl (70-99)
--- NOTE | 2024-06-18 05:14 | PTCARENOTE ---
Blood glucose 89, pt resting denies any s/s of hypoglycemia, provided 4 oz of apple juice, VSS.
[2024-06-18 06:00] VITALS: BMI 26.3
[2024-06-18] MEDS: DEXTROSE 50% SYRINGE 12.5 GRAMS IV ×2 (06:23→14:00)
[2024-06-18 06:24] LABS: Glucose - Point of Care 47 mg/dl (70-99)
[2024-06-18 06:30] VITALS: BP 93/48
--- NOTE | 2024-06-18 06:30 | PTCARENOTE ---
blood glucose 47 @ this time, provided 4 oz apple juice and 12.5g of 50% Dextrose per order. Pt symptomatic @ this time but able to make needs known and conversing with staff. BP 93/48 R 106
[2024-06-18 06:44] LABS: Glucose - Point of Care 121 mg/dl (70-99)
--- NOTE | 2024-06-18 06:45 | PTCARENOTE ---
Pt blood glucose 121 able to make needs known, provided 4 oz of apple juice, breakfast tray ordered @ 0630 by at bedside. HD called @ reported 0700 dialysis scheduled, pt resting in bed call allison within reach.
[2024-06-18] MEDS: ADVAIR HFA 115/21 MCG INHALER INH (07:28)
[2024-06-18 07:51] VITALS: BP 89/49
--- NOTE | 2024-06-18 09:02 | W.CON.NEPH ---
Consultation
-
Date/Time Consultation Requested: 06/17/241921
Date/Time Consultation Performed: 06/17/24914
Requesting Provider: Praveen Anton
Performing Provider: Nikia Bhatti
Reason for Consultation: ESRD
Medical History
-
Chief Complaint: s/p AVF revision
History of Present Illness:
Mr. Meyers is an 83 YOM with PMH of ESRD on HD (TThS) HD at [facility], DM type 2 on GLipizide, HLD on statin, Gout on Allopurinol, ICM, CAD on ASA, h/o brain bleed 2009, PAF on Amiodarone who presents to the hospital for elective revision of
AVF for poor maturation, he successfully underwent surg 06/17.. He is monitored through the night and nephrology asked to see him for HD needs. He notably had hypoglycemia at 20, symptomatic after missing meal last night. BP are in high 80s. He
offers no cp or sob. No abd pain, n/v. He does mention of difficulty UF at HD likely from low BPs.
Past Medical History
ESRD on HD
History of hypertension, lately with relative hypotension.
Diabetes
Asthma.
History of gout.
MVD CAD
h/o brain bleed 2009
Prostate ca s/p prostatectomy
PAF
h/o GIB
TB
Past Surgical History: Appendectomy and Other (Prostatectomy, HD catheter, PPM 01/2023, AVF creation 03/04/24)
Social History
Tobacco: Former Smoker (quit 25yrs ago)
Alcohol: None
Drug: None
Living: With Family
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
Family History
NoCKD
Family History: Not Pertinent
Allergies / Home Medications
Allergy/AdvReac Type Severity Reaction Status Date / Time
Aminoglycosides Allergy Vertigo Verified 06/17/24 10:13
erythromycin base Allergy VERTIGO Verified 06/17/24 10:13
latex Allergy Rash Verified 06/17/24 10:13
losartan Allergy Unknown Verified 06/17/24 10:13
niacin Allergy HIVES/WELTS Verified 06/17/24 10:13
�Medication �Instructions �Recorded �Confirmed �Type
albuterol sulfate 90 mcg/actuation 2 puff inhalation QID PRN 09/01/22 06/17/24 History
aerosol inhaler Shortness of Breath
fluticasone 250 mcg-salmeterol 50 1 inh inhalation R BID 09/01/22 06/17/24 History
mcg/dose blistr powdr for
inhalation (Advair Diskus)
atorvastatin 80 mg tablet 80 mg PO QPM #30 tabs 09/16/22 06/17/24 Rx
nitroglycerin 0.4 mg sublingual 0.4 mg sublingual [id number] PRN 09/16/22 06/15/24 Rx
tablet chest pain #20 tabs
allopurinol 100 mg tablet 200 mg PO DAILY 12/14/23 06/17/24 History
amiodarone 200 mg tablet 200 mg PO DAILY 12/14/23 06/17/24 History
aspirin 81 mg capsule 81 mg PO DAILY 12/14/23 06/17/24 History
glipizide 5 mg tablet, extended 5 mg PO QPM 12/14/23 06/17/24 History
release 24 hr
mecobalamin (vitamin B12) 1,000 1,000 mcg PO DAILY 12/14/23 06/17/24 History
mcg chewable tablet (B12 Active)
polyethylene glycol 3350 17 gram 17 g PO DAILY Constipation 03/05/24 06/17/24 History
oral powder packet (Miralax)
oxycodone 5 mg tablet 5 mg PO Q8HPRN PRN moderate pain 06/17/24 Rx
#5 tabs
Review of Systems
-
All xcomplete 12 point ROS have been inquired and found negative other than state din HPI
All other systems: Negative unless noted
Physical Exam
Vital Signs
Vital Signs
Temp Pulse Resp BP Pulse Ox
97.5 F 59 16 89/49 99
06/18/24 07:51 06/18/24 07:51 06/18/24 07:51 06/18/24 07:51 06/18/24 07:51
Lab Results
WBC 8.0 10^3/uL (4.8-10.8) 06/17/24 17:44
RBC 3.61 10^6/uL (4.70-6.10) L 06/17/24 17:44
Hgb 10.4 g/dL (13.0-18.0) L 06/17/24 17:44
Hct 32.0 % (39.0-52.0) L 06/17/24 17:44
Plt Count 122 10^3/uL (130-400) L 06/17/24 17:44
Sodium 136 mmol/L (135-145) 06/17/24 17:44
Potassium 4.2 mmol/L (3.5-5.1) 06/17/24 17:44
Chloride 94 mmol/L (98-107) L 06/17/24 17:44
Carbon Dioxide 23 mmol/L (22-30) 06/17/24 17:44
BUN 22 mg/dl (9-20) H 06/17/24 17:44
Creatinine 5.2 mg/dL (0.7-1.3) H* 06/17/24 17:44
eGFR 10.46 06/17/24 17:44
Glucose 210 mg/dl (70-99) H 06/17/24 17:44
Calcium 9.2 mg/dl (8.4-10.2) 06/17/24 17:44
Physical Exam
General: Awake, Alert, Oriented, AOx3, No Distress and Nontoxic
HEENT: EOMI, Anicteric and Facial Symmetry
Respiratory: Clear, Normal Excursion and Nonlabored Respirations
Cardiac: S1/S2 and Regular Rate/Rhythm
Breast: Deferred by me
Abdomen: Soft, Nontender and Other (mild distension )
Musculoskeletal: No Cyanosis and No Edema
Skin: No Rash
Neuro: Nonfocal/Grossly Intact
Psych: Mood/afflect pleasant, Insight/judgement good and Appropriate
Vascular Access: AVF and CVC
Data Reviewed
-
Labs: Labs Reviewed by me and Discussed with Patient
Assessment/Plan
-
Assessment:
AVF revision 06/17
ESRD on HD-TTS Azael
Rt IJ HD catheter
History of hypertension, lately with relative hypotension.
Symptomatic hypoglycemia
Diabetes
Asthma.
History of gout.
CAD
h/o brain bleed 2009
Prostate ca s/p prostatectomy
PAF
h/o GIB
Plan:
WIll plan HD today per schedule
midodrine for hypotension
monitor BG
renal diet and FR
d/c plan per primary
[2024-06-18] MEDS: MANNITOL 25% 12.5 GRAMS IV ×2 (09:19→11:17)
[2024-06-18] MEDS: HEPARIN 500 UNITS IV ×2 (09:20→11:17)
[2024-06-18] MEDS: ProAmatine 5 MG PO (09:38)
--- NOTE | 2024-06-18 09:50 | W.PN.NEPH.HD ---
Assessment
-
pt seen during HD
SBP were low through the night better now
will give dose of midodrine
CVC functions well
monitor glucose, hypoglycemic overnight
Progress Note - Hemodialysis
-
Date of Service: June 18, 2024
Duration: 30 minutes and 3 hours
Potassium Bath: 3
Calcium Bath: 2.5
Opti-Dialyzer: 160
Ultrafiltration: Other (1-1.5)
Blood Flow: 400
Dialysate Flow: 600
Heparin: yesx2
EPO: no
--- NOTE | 2024-06-18 10:14 | CM ---
CM met with patient in room. Patient confirmed demographics. Patient lives independently with . Patient denies history of SNF or VN. Patient uses a cane and walker at times, but does not regularly rely on them. Patient is known to [facility] and is on at TRS schedule. Patient is active with his PCP and uses [facility] pharmacy.
PLAN: Home, return to [facility].
--- NOTE | 2024-06-18 11:43 | W.PN.VS ---
Today's Communication / Plan
-
POD 1 RUE AVF revision
-mobilize after HD
-hopefully for DC toda
Assessment/Plan
-
POD 1 RUE AVF revision
-mobilize after HD
-hopefully for DC today
Subjective Data
-
Date of Service: June 18, 2024
POD 1 RUE fistula revision
BG 20s overnight. Treated, OK since
on HD now
hasn't been up and out of bed
Objective Data
-
Vital Signs
Temp Pulse Resp BP Pulse Ox
97.5 F 59 16 89/49 99
06/18/24 07:51 06/18/24 07:51 06/18/24 07:51 06/18/24 07:51 06/18/24 07:51
Intake and Output
06/17/24 06/18/24 06/19/24
06:59 06:59 06:59
Intake Total 1030 / 1030
Balance 1030 / 1030
Intake:
Oral fluids 480 / 480
IV fluids (Total) 550 / 550
NSS 50 / 50
Lab Results
06/17/24 17:44
06/17/24 17:44
Calcium 9.2 mg/dl (8.4-10.2) 06/17/24 17:44
Physical Exam
-
pulsatile thrill in RUE AVF
hand motor/sensory intact
incisions intact
[2024-06-18 11:45] LABS: Glucose - Point of Care 91 mg/dl (70-99)
[2024-06-18] MEDS: HEPARIN INTRACATH (12:11)
[2024-06-18 12:19] VITALS: BP 101/40
[2024-06-18] MEDS: HEPARIN 4000 UNITS INTRACATH (12:21)
[2024-06-18] MEDS: ZYLOPRIM 200 MG PO (12:23)
[2024-06-18] MEDS: PACERONE 200 MG PO (12:24)
[2024-06-18] MEDS: ASPIR LOW (ENTERIC COATED) 81 MG PO (12:24)
[2024-06-18 14:03] LABS: Glucose - Point of Care 43 mg/dl (70-99)
[2024-06-18 14:23] LABS: Glucose - Point of Care 75 mg/dl (70-99)
[2024-06-18] MEDS: ATIVAN 0.5 MG PO (14:55)
--- NOTE | 2024-06-18 15:50 | PTCARENOTE ---
Addendum entered by Lola Alaniz RN 06/18/24 19:50:
Prior to code team arrival: During assessment at 1545: Pt's bp was 121/52 with HR 84, Pt became tachypneic. Pt appeared in distress. Rapid Response called. BS obtained: 75. Pt quickly became unresponsive with agonal breathing, no pulse palpable, CPR
initiated.
Original Note:
1356: Pt's BS 43 with accudata. 1/2 amp dextrose given as per diabetic protocol. 15 min later, BS is 75.
1400: Pt c/o having trouble breathing and stating 'I'm feeling anxious'. Pt's asking to speak with the Vascular team. Pt's right arm fistula with positive bruit and thrill, Incision is w/surgi glue and well approximated. Pt's pulse ox is 95%
RA. 02 placed at [address]Lvia nc for comfort. Dr Solorzano contacted and orders received for Lorazepam 0.5mg X1 po., and Physician spoke with Pt's via telephone.
1545:Pt's called this nurse in to see Pt who is saying he is having trouble catching his breath. Pt unable to follow guidance with taking effective breaths. Pt became unresponsive and Code called.
[2024-06-18 15:55] LABS: Glucose - Point of Care 75 mg/dl (70-99)
--- NOTE | 2024-06-18 16:01 | W.PN.ANESINT ---
Anesthesia Intubation Note
- Intubation Note
Intubation Note:
Diagnosis: Cardiopulmonary Arrest
Blade: Glidescope 4
Tube Size: 8.0
Depth: 24
Side Taped: Right
Drugs Used: None
Grade View: I
EtCO2 Present: Yes
Atraumatic: Yes
Attempts: 1
Insertion Start and Stop Time:1550,1551
SaO2 Pre: 92
SaO2 Post:98
Glidescope Used: Yes
Other Airway Adjustments: None
Pre-Oxygenated: BMV by Respiratory Therapist
Portable Chest X-Ray: Pending
RSI: No
Suctioned: No
Bilateral Breath Sounds Confirmed: Yes
Vent Settings:
Settings per ICU__Attending Physician
--- NOTE | 2024-06-18 16:25 | RESPNOTE ---
Responded to the Rapid which later advanced to Code 9. Patient was intubated by the anesthesia with a #8.0 ETT , placement confirmed with End tidal monitoring and breath sounds. CPR continued and ERIN never came back after several rounds. Stopped CPR
and manual resuscitation bag as per the family request and physician order.
--- NOTE | 2024-06-18 16:55 | W.PN.UPDATE ---
Update Note
Progress Note Update
CODE 9 Note:
Responded to Code 9 called overhead
Patient reportedly here for fistula revision
Doing well until this afternoon when he became unresponsive and found to be pulseless
CPR performed for approx 20 min
Patient was PEA throughout, no shockable rhythm
Received epi x4 and D50
ROSC was not achieved
Patient's spouse at bedside and daughter over the phone requested that CPR be stopped
CC time 31 min
== END 2024-06-18 19:42 | disposition expired ==
LOC: CATH 09:14
PROVIDERS: ATTENDING PHYSICIAN Surgery Vascular Surgery; CONSULT PHYSICIAN Internal Medicine; FAMILY PHYSICIAN Nurse Practitioner Family; OTHER PHYSICIAN Internal Medicine Interventional Cardiology
DX: T82.898D Other specified complication of vascular prosthetic devices, implants and grafts, subsequent encounter (principal); Y83.2 Surgical operation with anastomosis, bypass or graft as the cause of abnormal reaction of the patient, or of later complication, without mention of misadventure at the time of the procedure; I12.0 Hypertensive chronic kidney disease with stage 5 chronic kidney disease or end stage renal disease; N18.6 End stage renal disease; Z99.2 Dependence on renal dialysis; E11.22 Type 2 diabetes mellitus with diabetic chronic kidney disease; E11.649 Type 2 diabetes mellitus with hypoglycemia without coma; I25.10 Atherosclerotic heart disease of native coronary artery without angina pectoris; E78.5 Hyperlipidemia, unspecified; I48.0 Paroxysmal atrial fibrillation; C61 Malignant neoplasm of prostate; J45.909 Unspecified asthma, uncomplicated; Z85.46 Personal history of malignant neoplasm of prostate; Z86.73 Personal history of transient ischemic attack (TIA), and cerebral infarction without residual deficits; Z87.891 Personal history of nicotine dependence; Z79.84 Long term (current) use of oral hypoglycemic drugs; Z79.82 Long term (current) use of aspirin
CPT/HCPCS: 36832; 80048; 82962; 85027; 85610; 85730; 92950; 93005; 94640